=== PATIENT | female | born 1965 | race Caucasian/White ===

== ENCOUNTER 2017-01-28 14:35 | Emergency (ER) | payer OTHER ==
[2017-01-28 14:44] VITALS: BP 153/82; PULSE 90; TEMP 98.2; BMI 25.9
[2017-01-28] MEDS ORDERED: KETOROLAC TROMETHAMINE 60 MG/2 ML VIAL IM ONE (15:15)
[2017-01-28] MEDS ORDERED: KETOROLAC TROMETHAMINE 60 MG/2 ML VIAL ONE (15:17)
--- NOTE | 2017-01-28 15:43 | PDOC ---
History of Present Illness - General Chief Complaint: Head/Neck problem Stated Complaint: LT SHOULDER&NECK PAIN Time Seen by Provider: 01/28/17 14:45 History Source: Patient Exam Limitations: No Limitations - History of Present Illness Initial Comments: 01/28/17 15:39 51 yr female with pain for 4 days to left side neck radiating to back of shoulder and upper arm. Pt states she woke up with the pain 4 days go continues to have pain, worse with movement of her neck. no fever no headache no chills, no trauma. 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 01/28/17 15:40 01/29/17 13:53 Past History - Past Medical History Allergies/Adverse Reactions: Allergies Allergy/AdvReac Type Severity Reaction Status Date / Time No Known Drug Allergies Allergy Verified 01/28/17 14:40 Home Medications: Ambulatory Orders Metformin HCl [Glucophage] 1,000 mg PO BID 07/17/12 Diazepam [Valium] 2 mg PO TID #15 tablet MDD 10mg 01/28/17 Lantus (10mL VIAL) - 01/28/17 Naproxen [Naprosyn -] 500 mg PO BID PRN #28 tablet 01/28/17 Tamoxifen Citrate 01/28/17 Anemia: Yes Asthma: No Cancer: Yes (BREAST) Cardiac Disorders: No CVA: No COPD: No CHF: No Dementia: No Diabetes: Yes GI Disorders: No Disorders: No HTN: Yes Hypercholesterolemia: No Liver Disease: No Seizures: No Thyroid Disease: No - Surgical History Abdominal Surgery: No Appendectomy: No Cardiac Surgery: No Cholecystectomy: No Lung Surgery: No Neurologic Surgery: No Orthopedic Surgery: No - Psycho/Social/Smoking Cessation Hx Anxiety: No Suicidal Ideation: No Smoking History: Never smoked Have you smoked in the past 12 months: No Hx Alcohol Use: No Drug/Substance Use Hx: No Substance Use Type: None Hx Substance Use Treatment: No *Physical Exam - Vital Signs Last Vital Signs Temp Pulse Resp BP Pulse Ox 98.2 F 90 19 153/82 99 01/28/17 14:40 01/28/17 14:40 01/28/17 14:40 01/28/17 14:40 01/28/17 14:40 - Physical Exam General Appearance: Yes: Nourished, Appropriately Dressed HEENT: positive: EOMI, DELORES, Normal ENT Inspection, TMs Normal, Pharynx Normal Neck: positive: Supple, Decreased range of motion, Tender lateral. negative: Rigidity, Tender midline Respiratory/Chest: positive: Lungs Clear, Normal Breath Sounds. negative: Chest Tender Cardiovascular: positive: Regular Rhythm, Regular Rate Gastrointestinal/Abdominal: positive: Normal Bowel Sounds, Soft. negative: Tender Musculoskeletal: positive: Normal Inspection, Muscle Spasm. negative: Vertebral Tenderness Extremity: positive: Normal Capillary Refill, Normal Inspection, Normal Range of Motion Integumentary: positive: Normal Color, Dry, Warm. negative: Pale Neurologic: positive: Fully Oriented, Alert, Normal Mood/Affect, Normal Response , Motor Strength 03/04 ED Treatment Course - RADIOLOGY Radiology Studies Ordered: Category Date Time Status SPINE-CERVICAL [RAD] Stat Radiology 01/28/17 15:11 Taken - Medications Given in the ED: ED Medications Discontinued Medications Generic Name Dose Route Start Last Admin Trade Name Freq PRN Reason Stop Dose Admin Ketorolac Tromethamine 60 mg 01/28/17 15:15 01/28/17 15:21 Toradol Injection - IM 01/28/17 15:16 60 mg ONCE ONE Administration Medical Decision Making - Medical Decision Making 01/28/17 15:42 cc: pain to left lateral neck to back of shoulder to upper arm worse with touch and movement no rash neg numbness or tingling will give toradol cspine xray 01/29/17 13:53 pt given copy of the xray report to discuss with her doctor or the orthopedist. pt satisfied with the plan of care and all questions asked and answered about the follow up plan. *DC/Admit/Observation/Transfer Diagnosis at time of Disposition: Cervical radiculopathy at C5 - Discharge Dispostion Disposition: HOME Condition at time of disposition: Good - Prescriptions Prescriptions: Naproxen [Naprosyn -] 500 mg PO BID PRN #28 tablet PRN Reason: Pain Diazepam [Valium] 2 mg PO TID #15 tablet MDD 10mg - Referrals Referrals: Sofia Nuñez MD [Primary Care Provider] - Gurvinder Baxter MD [Staff Physician] - - Patient Instructions Additional Instructions: take naprosyn as directed for pain take valium for muscle spasm you can take the two medications together DO NOT DRIVE, DRINK ALCOHOL OR OPERATE MACHINERY WHILE TAKING THIS MEDICATION ( VALIUM) apply ice every 2hrs for 15 minutes to the left side of your neck , alternate with heating pad you can use an over the counter rubbing cream such as Bio Freeze for sore muscles or Icy Hot please follow with the orthopedist for follow up and your primary care doctor return if any worsening symptoms
== END 2017-01-28 16:02 | disposition home or self-care (01) ==
LOC: JERFT 14:35
PROC: 3E0233Z Introduction of Anti-inflammatory into Muscle, Percutaneous Approach (ICD-10-PCS; principal; 2017-01-28)
DX: M54.12 Radiculopathy, cervical region (principal); I10 Essential (primary) hypertension; E11.9 Type 2 diabetes mellitus without complications; Z79.4 Long term (current) use of insulin; Z79.84 Long term (current) use of oral hypoglycemic drugs; Z85.3 Personal history of malignant neoplasm of breast
CPT/HCPCS: 72050-TC; 99281-25

== ENCOUNTER 2019-04-30 20:40 | Emergency (ER) | payer OTHER ==
[2019-04-30 20:49] VITALS: BMI 26.9
--- NOTE | 2019-04-30 20:50 | PDOC ---
Rapid Medical Evaluation Chief Complaint: Respiratory Time Seen by Provider: 04/30/19 20:44 Medical Evaluation: Allergies Allergy/AdvReac Type Severity Reaction Status Date / Time No Known Drug Allergies Allergy Verified 01/28/17 14:40 04/30/19 20:45 I have performed a brief in-person evaluation of this patient. The patient presents with a chief complaint of: fevers 103 - seen at Urgent Care with Influenza swab NEGATIVE there, Breast Cancer survivor. Pertinent physical exam findings: pale. , lungs clear. I have ordered the following: CxR, Ua The patient will proceed to the ED for further evaluation. 04/30/19 20:48 04/30/19 20:51 Discharge Disposition - Diagnosis Fever Qualifiers: Fever type: unspecified Qualified Code(s): R50.9 - Fever, unspecified - Referrals - Patient Instructions - Post Discharge Activity
--- NOTE | 2019-04-30 23:58 | PDOC ---
History of Present Illness - General Chief Complaint: Respiratory Stated Complaint: SENT BY DOCTOR Time Seen by Provider: 04/30/19 20:44 History Source: Patient Exam Limitations: No Limitations - History of Present Illness Initial Comments: 04/30/19 23:52 53 yo female pmh breast CA (s/p chemo and radiation, remission since 2017, sees Dr. Huitron regularly) and IDDM presents to the ED for 3 days of generalized weakness, dizziness, F/C and night sweats. Pt admits to recent travel to [place] , denies sick contacts or eating new/different foods. Denies N/V, CP, SOB, abdominal pain, back pain, changes in bowel or bladder habits, cough, congestion , KRAUSE, ear pain or sinus pain. Of note, Pt blood sugar at home in the 400s, averages 140s-160s, took sliding scale at home. Past History - Past Medical History Allergies/Adverse Reactions: Allergies Allergy/AdvReac Type Severity Reaction Status Date / Time No Known Drug Allergies Allergy Verified 04/30/19 20:49 Home Medications: Ambulatory Orders metFORMIN HCL [Glucophage] 1,000 mg PO DAILY 07/17/12 Tamoxifen Citrate 01/28/17 Insulin Lispro [Humalog] 100 unit SQ BID PRN 05/01/19 Sulfamethoxazole/Trimethoprim [Bactrim Ds Tablet] 1 each PO BID 3 Days #6 tablet 05/01/19 Anemia: Yes Asthma: No Cancer: Yes (BREAST) Cardiac Disorders: No CVA: No COPD: No CHF: No Dementia: No Diabetes: Yes GI Disorders: No Disorders: No HTN: Yes Hypercholesterolemia: No Liver Disease: No Seizures: No Thyroid Disease: No - Surgical History Abdominal Surgery: No Appendectomy: No Cardiac Surgery: No Cholecystectomy: No Lung Surgery: No Neurologic Surgery: No Orthopedic Surgery: No - Suicide/Smoking/Psychosocial Hx Smoking History: Never smoked Have you smoked in the past 12 months: No Hx Alcohol Use: No Drug/Substance Use Hx: No Substance Use Type: None Hx Substance Use Treatment: No Review of Systems - Review of Systems Constitutional: Yes: Chills, Fever, Night Sweats, Weakness (generalized), Weight Stable Respiratory: No: Cough, Shortness of Breath, Wheezing, Productive cough Cardiac (ROS): No: Chest Pain, Edema ABD/GI: No: Constipated, Diarrhea, Nausea, Vomiting : No: Burning, Dysuria, Discharge, Frequency, Flank Pain, Hematuria, Incontinence *Physical Exam - Vital Signs Last Vital Signs Temp Pulse Resp BP Pulse Ox 100.5 F H 120 H 18 104/71 95 04/30/19 20:44 04/30/19 20:44 04/30/19 20:44 04/30/19 20:44 04/30/19 20:44 - Physical Exam General Appearance: Yes: Nourished, Appropriately Dressed. No: Apparent Distress HEENT: positive: EOMI, Normal Voice Neck: positive: Supple. negative: Carotid bruit Respiratory/Chest: positive: Lungs Clear, Normal Breath Sounds. negative: Accessory Muscle Use, Crackles, Rales, Rhonchi, Wheezing Cardiovascular: positive: Regular Rhythm, Regular Rate, S1, S2. negative: Edema , JVD, Murmur Vascular Pulses: Dorsalis-Pedis (R): 4+, Doralis-Pedis (L): 4+ Gastrointestinal/Abdominal: positive: Flat, Soft. negative: Pulsatile Mass, Distended, Guarding, Rebound, Tenderness Musculoskeletal: negative: CVA Tenderness Extremity: positive: Normal Capillary Refill, Normal Inspection, Normal Range of Motion Integumentary: positive: Normal Color, Dry, Warm Neurologic: positive: Fully Oriented, Alert, Normal Mood/Affect, Normal Response ED Treatment Course - LABORATORY CBC & Chemistry Diagram: 05/01/19 00:50 05/01/19 00:50 Medical Decision Making - Medical Decision Making 05/01/19 01:42 53 yo female pmh IDDM and breast CA (in remission) presents to ED with 3 datys of generalized weakness, dizziness and fevers. Elevated BS at home Denies infectious s/s Vitals show elevated HR and temp Pt ambulates without difficulty, AOX4, NAD DDX INLT: DKA (blood sugar 240s, no anion gap, bicarb normal) infection, UTI, URI UA shows signs of significant infection, will treat with IV ceftriaxone Labs normal, no elevated WBC Denies CVA tenderness Pt is reliable, has follow up with PCP tita, will take PO meds and have strict return precautions for worsening infection *DC/Admit/Observation/Transfer Diagnosis at time of Disposition: UTI (urinary tract infection) Fever Qualifiers: Fever type: due to other condition Qualified Code(s): R50.81 - Fever presenting with conditions classified elsewhere - Discharge Dispostion Disposition: HOME Condition at time of disposition: Stable - Prescriptions Prescriptions: Sulfamethoxazole/Trimethoprim [Bactrim Ds Tablet] 1 each PO BID 3 Days #6 tablet - Referrals Referrals: Sofia Nuñez MD [Primary Care Provider] - - Patient Instructions Additional Instructions: Please see your primary doctor within the next 48 hours. Take over the counter tyelnol or motrin every 4-6 hours as needed for elevated temperatures. Take the antibiotics sent to your pharmacy as prescribed for the next 3 days. Return to the ER for new or concerning symptoms including but not limited to: inability to eat or drink, significant back pain, persistently elevated temperature, confusion, vomiting. Thank you - Post Discharge Activity
[2019-05-01] MEDS ORDERED: SODIUM CHLORIDE 1,000 ML IV STA (00:12)
[2019-05-01 00:27] LABS: EPI CELLS 4.6 /HPF (0-5/HPF); HYALINE CASTS 11 /lpf (0-8); URINE APPEARANCE TURBID; URINE BACTERIA >9000 /hpf (NEGATIVE); URINE BILIRUBIN 2+ (NEGATIVE); URINE COLOR DK YELLOW; URINE GLUCOSE (UA) 3+ (NEGATIVE); URINE KETONE 2+ (NEGATIVE); URINE LEUK ESTERASE 2+ (NEGATIVE); URINE NITRITE POSITIVE (NEGATIVE); URINE PROTEIN 3+ (NEGATIVE); URINE RBC 9 /hpf (0-4); URINE WBC 469 /hpf (0-5)
[2019-05-01] MEDS ORDERED: ACETAMINOPHEN 1000 MG/100 ML VIAL (NON FORMULARY) IVPB ONE (00:28)
[2019-05-01] MEDS ORDERED: CEFTRIAXONE 1,000 MG in DEXTROSE 5%-WATER - 50 ML IVPB ONE (00:35)
--- NOTE | 2019-05-01 00:37 | PDOC ---
Documentation entered by Pietro Mcnair SCRIBE, acting as scribe for Robyn Hilliard MD. Robyn Hilliard MD: This documentation has been prepared by the Xu trujillo Daniel, SCRIBE, under my direction and personally reviewed by me in its entirety. I confirm that the documentation accurately reflects all work, treatment, procedures, and medical decision making performed by me. Attending Attestation - Resident Resident Name: Javier Vazquez - ED Attending Attestation I have performed the following: I have examined & evaluated the patient, The case was reviewed & discussed with the resident, I agree w/resident's findings & plan, Exceptions are as noted - HPI HPI: 05/01/19 00:02 The patient is a 53 year old female with a past medical history of breast cancer (s/p chemo and radiation, in remission since 2017) and insulin dependent diabetes here today for evaluation of fever. The patient reports that she has had 2 days of sweats and dizziness. She notes taking her fever at home and it being 103. She went to an urgent care facility and was told to come to the ER. She reports traveling to [place] in the past week. Patient denies headache. Denies chest pain, shortness of breath. Denies nausea, vomiting, diarrhea, abdominal pain. Denies sick contacts. Allergies: NKDA PCP: Sofia Nuñez Oncologist: Joshua Huitron - Physicial Exam PE: 05/01/19 00:26 GENERAL: Well developed, well nourished. Awake and alert. No acute distress. HEENT: Normocephalic, atraumatic. PERRLA, EOMI. No conjunctival pallor. Sclera are non- icteric. Moist mucous membranes. Oropharynx is clear. NECK: Supple. Full ROM. No JVD. Carotid pulses 2+ and symmetric, without bruits. No thyromegaly. No lymphadenopathy. CARDIOVASCULAR: +tachycardia. Regular rhythm. No murmurs, rubs, or gallops. Distal pulses are 2 + and symmetric. PULMONARY: No evidence of respiratory distress. Lungs clear to auscultation bilaterally. No wheezing, rales or rhonchi. ABDOMINAL: Soft. Non-tender. Non-distended. No rebound or guarding. No organomegaly. Normoactive bowel sounds. MUSCULOSKELETAL Normal range of motion at all joints. No bony deformities or tenderness. No CVA tenderness. EXTREMITIES: No cyanosis. No clubbing. No edema. No calf tenderness. SKIN: Very warm and dry. Normal capillary refill. No rashes. No jaundice. NEUROLOGICAL: Alert, awake, appropriate. Cranial nerves 2-12 intact. No deficits to light touch and temperature in face, upper extremities and lower extremities. No motor deficits in the face, upper extremities and lower extremities. Normoreflexic in the upper and lower extremities. Normal speech. Toes are down- going bilaterally. Gait is normal without ataxia. PSYCHIATRIC: Cooperative. Good eye contact. Appropriate mood and affect. - Medical Decision Making 05/01/19 00:35 Repeat [id number] Labs reviewed and she has a UTI with + nitrite,wbcs >300 pt to receive IVF,IV rocephin 05/01/19 01:53 pt is not vomiting and will be able to take po antibiotics RX bactrim IMP uti/diabetes plan ABX, followup w Dr Nuñez
[2019-05-01] MEDS ORDERED: ACETAMINOPHEN INJECTION 100 ML IVPB ONE (00:45)
[2019-05-01] MEDS ORDERED: CEFTRIAXONE 1 GM/50 ML BAG ONE (00:45)
[2019-05-01 01:11] LABS: BASO % 0.3 % (0-2.0); HEMATOCRIT 40.2 % (32.4-45.2); HEMOGLOBIN 13.4 GM/dL (10.7-15.3); LYMPH % 14.9 % (8-40); MCH 27.2 pg (25.7-33.7); MCHC 33.3 g/dl (32.0-36.0); MEAN CELL VOLUME 81.8 fl (80-96); MONO % 11.7 % (3.8-10.2); NEUT % 73.1 % (42.8-82.8); PLATELET COUNT 122 K/MM3 (134-434); RBC 4.91 M/mm3 (3.60-5.2); RDW 13.4 % (11.6-15.6); WHITE BLOOD COUNT 6.5 K/mm3 (4.0-10.0)
[2019-05-01 01:33] LABS: ALBUMIN 3.5 g/dl (3.4-5.0); BILIRUBIN,TOTAL 1.7 mg/dL (0.2-1); BLOOD UREA NITROGEN 16.4 mg/dL (7-18); CALCIUM 9.2 mg/dL (8.5-10.1); POTASSIUM 4.1 mmol/L (3.5-5.1); TOT PROT 7.9 g/dl (6.4-8.2)
[2019-05-01 02:30] VITALS: BP 145/79; PULSE 99; TEMP 99.4
--- NOTE | 2019-05-01 14:45 | PDOC ---
Patient Follow-up (Call Back) - Post ED Follow - Up Condition at time of discharge: Stable Disposition at time of original discharge: HOME Reason for Call Back: Abnwl. Microbiology ((+) blood culture, gram - bacilli in one anerobic bottle. LM for patient to call back for repeat blood draws/re- evaluation)
== END 2019-05-01 04:55 | disposition home or self-care (01) ==
LOC: JER 20:40
PROC: 3E0337Z Introduction of Electrolytic and Water Balance Substance into Peripheral Vein, Percutaneous Approach (ICD-10-PCS; principal; 2019-04-30)
PROC: 3E03329 Introduction of Other Anti-infective into Peripheral Vein, Percutaneous Approach (ICD-10-PCS; 2019-04-30)
PROC: 3E033NZ Introduction of Analgesics, Hypnotics, Sedatives into Peripheral Vein, Percutaneous Approach (ICD-10-PCS; 2019-04-30)
DX: N39.0 Urinary tract infection, site not specified (principal); E11.9 Type 2 diabetes mellitus without complications; Z79.4 Long term (current) use of insulin; I10 Essential (primary) hypertension; Z85.3 Personal history of malignant neoplasm of breast
CPT/HCPCS: 36415; 71046-TC-FY; 80053; 81003; 83605; 85025; 87040; 87070; 87077; 87086; 87186; 87880; 99283-25; J0131; J7030

== ENCOUNTER 2019-05-01 17:13 | Inpatient (IN) | payer OTHER ==
--- NOTE | 2019-05-01 17:21 | PDOC ---
Rapid Medical Evaluation Time Seen by Provider: 05/01/19 17:15 Medical Evaluation: Allergies Allergy/AdvReac Type Severity Reaction Status Date / Time No Known Drug Allergies Allergy Verified 04/30/19 20:49 05/01/19 17:15 The patient is a 53 y/o F who presents to the ER for repeat labs after having a positive blood culture yesterday (1 bottle gram negative, anerobic bottle.) Pt was diagnosed with a UTI last night and was given one dose of ceftriaxone last night. Admits to fatigue at this time. No Motrin or Tylenol this am Exam: febrile 101F. NAD, Lungs CTAB Orders: Sepsis order set Pt to proceed to the ER for further evaluation Discharge Disposition - Diagnosis Positive blood culture - Referrals - Patient Instructions - Post Discharge Activity
[2019-05-01] MEDS ORDERED: ACETAMINOPHEN 1000 MG/100 ML VIAL (NON FORMULARY) IVPB ONE (17:23)
[2019-05-01] MEDS ORDERED: SODIUM CHLORIDE 1,000 ML IV STA ×2 (17:23→20:33)
--- NOTE | 2019-05-01 18:43 | PDOC ---
History of Present Illness - General Chief Complaint: Revisit, Lab Variance Stated Complaint: FOLLOW UP/ BLOOD WORK Time Seen by Provider: 05/01/19 17:15 History Source: Patient Exam Limitations: No Limitations - History of Present Illness Initial Comments: 05/01/19 18:43 53yo F with PMH of breast CA (remission since 2016), IDDM presenting to ED for a blood culture that grew gram negative bacilli. She denies any symptoms at this time, although does endorse feeling tired. Denies n/v/d, fever/chills, flank pain, cough, congestion, sob, sore throat, abdominal pain, urinary symptoms, sick contacts, rashes, headache. She was diagnosed with a UTI yesterday and given ceftriaxone. PMD: [place] PMH: see hpi PSH: Meds: see med rec Allergies: nkda Past History - Past Medical History Allergies/Adverse Reactions: Allergies Allergy/AdvReac Type Severity Reaction Status Date / Time No Known Drug Allergies Allergy Verified 04/30/19 20:49 Home Medications: Ambulatory Orders metFORMIN HCL [Glucophage] 1,000 mg PO BID 07/17/12 Diazepam [Valium] 2 mg PO TID #15 tablet MDD 10mg 01/28/17 Lantus (10mL VIAL) - 01/28/17 Naproxen [Naprosyn -] 500 mg PO BID PRN #28 tablet 01/28/17 Tamoxifen Citrate 01/28/17 Sulfamethoxazole/Trimethoprim [Bactrim Ds Tablet] 1 each PO BID 3 Days #6 tablet 05/01/19 Anemia: Yes Asthma: No Cancer: Yes (BREAST) Cardiac Disorders: No CVA: No COPD: No CHF: No Dementia: No Diabetes: Yes GI Disorders: No Disorders: No HTN: Yes Hypercholesterolemia: No Liver Disease: No Seizures: No Thyroid Disease: No - Surgical History Abdominal Surgery: No Appendectomy: No Cardiac Surgery: No Cholecystectomy: No Lung Surgery: No Neurologic Surgery: No Orthopedic Surgery: No - Immunization History Immunization Up to Date: No - Suicide/Smoking/Psychosocial Hx Smoking History: Never smoked Have you smoked in the past 12 months: No Information on smoking cessation initiated: No Hx Alcohol Use: No Drug/Substance Use Hx: No Substance Use Type: None Hx Substance Use Treatment: No Review of Systems - Review of Systems Constitutional: Yes: Weakness. No: Chills, Fever HEENTM: No: Symptoms Reported Respiratory: No: Symptoms reported Cardiac (ROS): No: Symptoms Reported ABD/GI: No: Symptoms Reported : No: Symptoms Reported Musculoskeletal: No: Symptoms Reported Integumentary: No: Symptoms Reported Neurological: No: Symptoms reported *Physical Exam - Vital Signs Last Vital Signs Temp Pulse Resp BP Pulse Ox 101.8 F H 117 H 16 115/72 100 05/01/19 17:17 05/01/19 17:17 05/01/19 17:17 05/01/19 17:17 05/01/19 17:17 - Physical Exam General Appearance: Yes: Nourished, Appropriately Dressed. No: Apparent Distress HEENT: positive: EOMI, DELORES Neck: positive: Trachea midline, Supple Respiratory/Chest: positive: Lungs Clear, Normal Breath Sounds. negative: Crackles, Rhonchi Cardiovascular: positive: S1, S2, Tachycardia. negative: Murmur Vascular Pulses: Dorsalis-Pedis (R): 2+, Doralis-Pedis (L): 2+ Gastrointestinal/Abdominal: positive: Normal Bowel Sounds, Soft. negative: Tender Musculoskeletal: negative: CVA Tenderness Extremity: positive: Normal Capillary Refill. negative: Pedal Edema Integumentary: positive: Normal Color, Dry, Warm Neurologic: positive: oyster planter II-XII NML intact, Fully Oriented, Alert, Normal Mood/ Affect, Normal Response, Motor Strength 5/5 Medical Decision Making - Medical Decision Making 05/01/19 18:54 53yo F with PMH of breast CA (remission since 2017), IDDM presenting to ED for a blood culture that grew gram negative bacilli. She denies any symptoms at this time, although does endorse fever and feeling tired. Denies n/v/d, flank pain, cough, congestion, sob, sore throat, abdominal pain, sick contacts, rashes , headache. She was diagnosed with a UTI yesterday and given ceftriaxone. Vitals: febrile, tachycardia, normotensive PE: benign ddx includes but not limited to urosepsis, pyelonephritis, electrolyte/ metabolic disturbance, malignancy pt not on immunosuppressant drugs. Received ceftriaxone yesterday? Bactrim prescribed yesterday but she was not able to take it. labs/sepsis w/u ordered by [facility]. Will likely need admission. Signed out to night resident *DC/Admit/Observation/Transfer Diagnosis at time of Disposition: Positive blood culture Fever Qualifiers: Fever type: due to other condition Qualified Code(s): R50.81 - Fever presenting with conditions classified elsewhere - Discharge Dispostion Condition at time of disposition: Stable - Referrals Referrals: Sofia Nuñez MD [Primary Care Provider] - - Patient Instructions - Post Discharge Activity
[2019-05-01] MEDS ORDERED: ACETAMINOPHEN INJECTION 100 ML IVPB ONE (18:49)
[2019-05-01 18:54] LABS: BASO % 0.3 % (0-2.0); EOS % 0.2 % (0-4.5); HEMATOCRIT 33.3 % (32.4-45.2); HEMOGLOBIN 11.2 GM/dL (10.7-15.3); LYMPH % 16.4 % (8-40); MCH 27.1 pg (25.7-33.7); MCHC 33.6 g/dl (32.0-36.0); MEAN CELL VOLUME 80.5 fl (80-96); MEAN PLT VOLUME 8.2 fl (7.5-11.1); NEUT % 72.1 % (42.8-82.8); PLATELET COUNT 126 K/MM3 (134-434); RBC 4.13 M/mm3 (3.60-5.2); RDW 13.6 % (11.6-15.6); WHITE BLOOD COUNT 5.7 K/mm3 (4.0-10.0)
[2019-05-01 19:03] LABS: INR 1.15 (0.83-1.09); PROTHROMBIN TIME (PATIENT) 13.6 SEC (9.7-13.0)
[2019-05-01] MEDS ORDERED: VANCOMYCIN 1 GM in D5W (PRE-DOCKED) 1,000 MG/250 ML IVPB ONE (19:11)
[2019-05-01] MEDS ORDERED: PIPERACILLIN/TAZOB 3.375 GM 3.375 GM in DEXTROSE 5%-WATER - 50 ML IVPB ONE (19:11)
[2019-05-01 19:30] LABS: BILIRUBIN,TOTAL 0.8 mg/dL (0.2-1); BLOOD UREA NITROGEN 14.7 mg/dL (7-18); CALCIUM 8.8 mg/dL (8.5-10.1); CREATININE 0.9 mg/dL (0.55-1.3); POTASSIUM 3.7 mmol/L (3.5-5.1); TOT PROT 6.9 g/dl (6.4-8.2)
[2019-05-01] MEDS ORDERED: PIPERACILLIN/TAZOB 3.375 GM 3.375 GM/50 ML BAG IVPB ONE (20:18)
[2019-05-01] MEDS ORDERED: VANCOMYCIN 1 GRAM (PRE-DOCKED) 1,000 MG/250 ML BAG IVPB ONE (20:18)
--- NOTE | 2019-05-01 20:42 | PDOC ---
*Physical Exam - Vital Signs Last Vital Signs Temp Pulse Resp BP Pulse Ox 101.8 F H 117 H 16 115/72 100 05/01/19 17:17 05/01/19 17:17 05/01/19 17:17 05/01/19 17:17 05/01/19 17:17 ED Treatment Course - LABORATORY CBC & Chemistry Diagram: 05/03/19 06:17 05/03/19 06:17 - ADDITIONAL ORDERS Additional order review: Laboratory Results 05/01/19 05/01/19 05/01/19 18:37 17:22 17:22 PT with INR 13.60 H INR 1.15 H Sodium 135 L Potassium 3.7 Chloride 102 Carbon Dioxide 28 Anion Gap 5 L BUN 14.7 Creatinine 0.9 Est GFR (CKD-EPI)AfAm 84.01 Est GFR (CKD-EPI)NonAf 72.49 Random Glucose 193 H Lactic Acid 1.1 Calcium 8.8 Total Bilirubin 0.8 AST 16 ALT 41 Alkaline Phosphatase 104 Total Protein 6.9 Albumin 3.0 L 05/01/19 18:37 RBC 4.13 MCV 80.5 MCHC 33.6 RDW 13.6 MPV 8.2 Neutrophils % 72.1 Lymphocytes % 16.4 Monocytes % 11.0 H Eosinophils % 0.2 D Basophils % 0.3 - Medications Given in the ED: ED Medications Discontinued Medications Generic Name Dose Route Start Last Admin Trade Name Freq PRN Reason Stop Dose Admin Acetaminophen 1,000 mg 05/01/19 17:23 05/01/19 18:55 Ofirmev Injection - IVPB 05/01/19 17:24 1,000 mg ONCE ONE Administration Sodium Chloride 1,000 mls @ 1,000 mls/hr 05/01/19 17:23 05/01/19 18:54 Normal Saline - IV 05/01/19 18:22 1,000 mls/hr ASDIR STA Administration Medical Decision Making - Medical Decision Making 05/01/19 20:34 S/O from day team for likely admission for Uro sepsis falling antibiotics. Received Ceftriaxone pt admitted to med surg 2L NS, [place] Pending CBC and UA CBC neg for elevated WBC UA shows 1+ leukocytes Discussed case with Dr. Vaughan, agrees to have pt admitted to med surg under Dr. Nuñez for uro sepsis Pt understands and agrees with plan to admit *DC/Admit/Observation/Transfer Diagnosis at time of Disposition: Positive blood culture, UTI (urinary tract infection) Fever Qualifiers: Fever type: due to other condition Qualified Code(s): R50.81 - Fever presenting with conditions classified elsewhere - Discharge Dispostion Condition at time of disposition: Stable Decision to Admit order: Yes - Referrals - Patient Instructions - Post Discharge Activity
--- NOTE | 2019-05-01 21:06 | PDOC ---
Documentation entered by Garret Mccollum SCRIBE, acting as scribe for Robyn Hilliard MD. Robyn Hilliard MD: This documentation has been prepared by the Chun trujillo Elijah, SCRIBE, under my direction and personally reviewed by me in its entirety. I confirm that the documentation accurately reflects all work, treatment, procedures, and medical decision making performed by me. Attending Attestation - Resident Resident Name: ShavonneOksana - ED Attending Attestation I have performed the following: I have examined & evaluated the patient, The case was reviewed & discussed with the resident, I agree w/resident's findings & plan - HPI HPI: 05/01/19 20:20 Patient is a 53 year old female who presents to the ED with of breast CA ( remission since 2017), IDDM, anemia, and HTN who presents to the ED for a follow -up of a blood culture that came back gram-negative bacilli. The patient was recently seen in the ED x1 day prior where she was diagnosed with a UTI. Patient was given antibiotics, but upon returning home, fell asleep without taking her medication and still awoke with fever. Denies: Nausea, Vomiting, Diarrhea, CP, and SOB Allergies: NKDA PCP: Dr. Nuñez - Physicial Exam PE: 05/01/19 20:20 GENERAL: Awake, alert, and fully oriented, in no acute distress HEAD: No signs of trauma EYES: PERRLA, EOMI, sclera anicteric, conjunctiva clear ENT: Auricles normal inspection, hearing grossly normal, nares patent, oropharynx clear without exudates. Moist mucosa NECK: Normal ROM, supple, no lymphadenopathy, JVD, or masses LUNGS: Breath sounds equal, clear to auscultation bilaterally. No wheezes, and no crackles HEART: +Tachycardic Normal S1 and S2, no murmurs, rubs or gallops ABDOMEN: Soft, nontender, normoactive bowel sounds. No guarding, no rebound. No masses EXTREMITIES: Normal range of motion, no edema. No clubbing or cyanosis. No cords, erythema, or tenderness NEUROLOGICAL: Cranial nerves II through XII grossly intact. Normal speech, normal gait SKIN: Warm, Dry, normal turgor, no rashes or lesions noted. - Medical Decision Making 05/01/19 20:58 53 yo female who was diagnosaed w UTI yesterday but did not get to fill her prescription p/w fever and needs admission for urosepsis and IV antibiotics
--- NOTE | 2019-05-01 21:17 | HP ---
CHIEF COMPLAINT: follow up for blood culture ( gram- negative bacilli) PCP:Dr. Nuñez HISTORY OF PRESENT ILLNESS: 53 year old female with PMHx of breast cancer (in remission), DM type I, Anemia, and Hypertension. Presented to ER yesterday 2018 due to fever of 103, work up was done positive urinalysis diagnosed with UTI given Ceftriaxone x1in ED then discharged with PO antibiotics. Today 05/01 presents to ER for blood culture ( gram - negative bacilli) and fever of 101. During the course of ED given x1 dose Zosyn and Vancomycin, repeat blood culture. Tylenol given temp rechecked 99 F now. Upon exam patient reports feeling tired, and poor appetite, otherwise denies n/v/d, fever/chills, flank pain, cough, congestion, sob, sore throat, abdominal pain, urinary symptoms, rashes, headache. ER course was notable for: (1) noted with temp 101, given zosyn and vanco x1 (2) yesterday blood culture shows gram- negative bacilli (3) follow up repeat blood and urine culture Recent Travel: no PAST MEDICAL HISTORY: Anemia, Breast ca ( in remission), DM type 1, HTN PAST SURGICAL HISTORY: NO Social History: Smoking:no Alcohol: yes social Drugs: no Family History: Father and Mother both have history of DM type I Allergies: no No Known Drug Allergies Allergy (Verified 04/30/19 20:49) HOME MEDICATIONS: Home Medications Medication Instructions Recorded metFORMIN HCL [Glucophage] 1,000 mg PO DAILY 07/17/12 Tamoxifen Citrate 01/28/17 Insulin Lispro [Humalog] 100 unit SQ BID PRN 05/01/19 Sulfamethoxazole/Trimethoprim 1 each PO BID 3 Days #6 tablet 05/01/19 [Bactrim Ds Tablet] REVIEW OF SYSTEMS CONSTITUTIONAL: malaise, loss of appetite HEENT: Absent: rhinorrhea, nasal congestion, mouth swelling, ear pain, eye pain, visual changes CARDIOVASCULAR: Absent: chest pain, syncope, palpitations, irregular heart rate , lightheadedness, peripheral edema RESPIRATORY: Absent: cough, shortness of breath, dyspnea with exertion, orthopnea, wheezing GASTROINTESTINAL: Absent: abdominal pain, abdominal distension, nausea, vomiting , diarrhea, constipation GENITOURINARY: Absent: dysuria, frequency, urgency, hesitancy, hematuria, flank pain, genital pain MUSCULOSKELETAL: Absent: myalgia, arthralgia, joint swelling, back pain, neck pain SKIN: Absent: rash, itching, pallor HEMATOLOGIC/IMMUNOLOGIC: Absent: easy bleeding, easy bruising, lymphadenopathy , frequent infections ENDOCRINE: Absent: unexplained weight gain, unexplained weight loss, heat intolerance, cold intolerance NEUROLOGIC: Absent: headache, focal weakness or paresthesias, dizziness, unsteady gait, seizure, mental status changes, bladder or bowel incontinence PSYCHIATRIC: Absent: anxiety, depression, suicidal or homicidal ideation, hallucinations. PHYSICAL EXAMINATION Vital Signs - 24 hr 05/01/19 17:17 Temperature 101.8 F H Pulse Rate 117 H Respiratory 16 Rate Blood Pressure 115/72 O2 Sat by Pulse 100 Oximetry (%) GENERAL: Awake, alert, and fully oriented, in no acute distress. HEENT: NC/AT, EOMI, PERRLA NECK: Normal range of motion, supple without lymphadenopathy, JVD, or masses. LUNGS: Breath sounds equal, clear to auscultation bilaterally. No wheezes HEART: Regular rate and rhythm, normal S1 and S2 without murmur ABDOMEN: Soft, nontender, not distended, normoactive bowel sounds, no guarding, no rebound, no masses. MUSCULOSKELETAL: Normal range of motion at all joints. No bony deformities or tenderness. No CVA tenderness. NEUROLOGICAL: Cranial nerves II-XII intact. Normal speech. Normal gait. PSYCHIATRIC: Cooperative. Good eye contact. Appropriate mood and affect. SKIN: Warm, dry, normal turgor, no rashes or lesions noted Laboratory Results - last 24 hr 05/01/19 05/01/19 05/01/19 17:22 17:22 18:37 WBC 5.7 RBC 4.13 Hgb 11.2 Hct 33.3 D MCV 80.5 MCH 27.1 MCHC 33.6 RDW 13.6 Plt Count 126 L MPV 8.2 Absolute Neuts (auto) 4.1 Neutrophils % 72.1 Lymphocytes % 16.4 Monocytes % 11.0 H Eosinophils % 0.2 D Basophils % 0.3 Nucleated RBC % 0 PT with INR INR Sodium 135 L Potassium 3.7 Chloride 102 Carbon Dioxide 28 Anion Gap 5 L BUN 14.7 Creatinine 0.9 Est GFR (CKD-EPI)AfAm 84.01 Est GFR (CKD-EPI)NonAf 72.49 Random Glucose 193 H Lactic Acid 1.1 Calcium 8.8 Total Bilirubin 0.8 AST 16 ALT 41 Alkaline Phosphatase 104 Total Protein 6.9 Albumin 3.0 L 05/01/19 18:37 WBC RBC Hgb Hct MCV MCH MCHC RDW Plt Count MPV Absolute Neuts (auto) Neutrophils % Lymphocytes % Monocytes % Eosinophils % Basophils % Nucleated RBC % PT with INR 13.60 H INR 1.15 H Sodium Potassium Chloride Carbon Dioxide Anion Gap BUN Creatinine Est GFR (CKD-EPI)AfAm Est GFR (CKD-EPI)NonAf Random Glucose Lactic Acid Calcium Total Bilirubin AST ALT Alkaline Phosphatase Total Protein Albumin ASSESSMENT/PLAN: 53 year old female with PMHx breast CA (remission since 2016), IDDM, Anemia, HTN presenting to ED for a blood culture that grew gram negative bacilli. She was diagnosed with a UTI yesterday and given ceftriaxone x1 in ED and po antiboitics for home. Upon arriving to ED today noted with temp of 101 and tachy will admited to general medicine for sepsis secondary UTI Spesis ?UTI positive blood culture - in ED given Vanco and Zosyn x1 - Tyelnol PRN q 6 - follow up repeat blood, urine culture DM -continue with Metformin -Continue with Lantus and victoza ( sliding scale) h/o breast cancer - remission post tamoxifen 12/2016 Problem List - Problem (1) Sepsis Assessment/Plan: Spesis ?UTI positive blood culture - in ED given Vanco and Zosyn x1 - Tyelnol PRN q 6 - follow up repeat blood, urine culture Code(s): A41.9 - SEPSIS, UNSPECIFIED ORGANISM (2) UTI (urinary tract infection) Assessment/Plan: Spesis ?UTI positive blood culture - in ED given Vanco and Zosyn x1 - Tyelnol PRN q 6 - follow up repeat blood, urine culture Code(s): N39.0 - URINARY TRACT INFECTION, SITE NOT SPECIFIED (3) Diabetes Assessment/Plan: DM -continue with Metformin -Continue with Lantus and victoza ( sliding scale) Code(s): E11.9 - TYPE 2 DIABETES MELLITUS WITHOUT COMPLICATIONS (4) History of breast cancer Assessment/Plan: h/o breast cancer - remission post tamoxifen 12/2016 Code(s): Z85.3 - PERSONAL HISTORY OF MALIGNANT NEOPLASM OF BREAST Visit type - Emergency Visit Emergency Visit: Yes Care time: The patient presented to the Emergency Department on the above date and was hospitalized for further evaluation of their emergent condition. - New Patient This patient is new to me today: Yes Date on this admission: 05/01/19 - Critical Care Critical Care patient: No
[2019-05-01 21:48] LABS: EPI CELLS 6.2 /HPF (0-5/HPF); HYALINE CASTS 17 /lpf (0-8); URINE APPEARANCE CLEAR; URINE BILIRUBIN NEGATIVE (NEGATIVE); URINE COLOR DK YELLOW; URINE GLUCOSE (UA) 2+ (NEGATIVE); URINE KETONE TRACE (NEGATIVE); URINE LEUK ESTERASE 1+ (NEGATIVE); URINE NITRITE NEGATIVE (NEGATIVE); URINE PROTEIN 2+ (NEGATIVE); URINE RBC 18 /hpf (0-4); URINE WBC 28 /hpf (0-5)
[2019-05-01] MEDS ORDERED: ACETAMINOPHEN 325 MG TABLET (FP) ONE (22:11)
[2019-05-01] MEDS ORDERED: INSULIN (LEVEMIR) 100 UNITS/ML UNITS SQ ONE ×2 (22:12→22:43)
[2019-05-01] MEDS: INSULIN (LEVEMIR) 100 UNITS/ML UNITS SQ SCH (23:15)
[2019-05-02 01:25] VITALS: BMI 28.5
[2019-05-02] MEDS: ACETAMINOPHEN 325 MG TABLET (FP) PO PRN (05:57)
[2019-05-02] MEDS: INSULIN (NOVOLOG) ASPART 100 UNITS/ML 10ML VIAL SQ SCH ×3 (06:27→17:42)
[2019-05-02 07:37] LABS: HEMATOCRIT 28.6 % (32.4-45.2); HEMOGLOBIN 9.8 GM/dL (10.7-15.3); MCH 27.5 pg (25.7-33.7); MCHC 34.2 g/dl (32.0-36.0); MEAN CELL VOLUME 80.4 fl (80-96); RBC 3.56 M/mm3 (3.60-5.2); RDW 13.5 % (11.6-15.6); WHITE BLOOD COUNT 4.4 K/mm3 (4.0-10.0)
[2019-05-02 07:55] LABS: ALBUMIN 2.6 g/dl (3.4-5.0); BILIRUBIN,TOTAL 0.7 mg/dL (0.2-1); BLOOD UREA NITROGEN 9.2 mg/dL (7-18); CREATININE 0.6 mg/dL (0.55-1.3); POTASSIUM 3.3 mmol/L (3.5-5.1)
[2019-05-02 07:59] LABS: PLATELET COUNT 92 K/MM3 (134-434)
[2019-05-02] MEDS ORDERED: POTASSIUM CHLORIDE TABS 20 MEQ TABLET.ER (FP) PO ONE (08:54)
--- NOTE | 2019-05-02 08:56 | PN ---
Progress Note, Physician - Current Medication List Current Medications: Active Medications Acetaminophen (Tylenol -) 650 mg PO Q4H PRN PRN Reason: FEVER Last Admin: 05/02/19 05:57 Dose: 650 mg Insulin Aspart (Novolog Vial) 0 units SQ TIDAC REPLACED BY [facility]; Protocol Last Admin: 05/02/19 06:27 Dose: Not Given Insulin Detemir (Levemir Vial) 25 units SQ HS REPLACED BY [facility] Last Admin: 05/01/19 23:15 Dose: 25 unit Metformin HCl (Glucophage -) 1,000 mg PO DAILY REPLACED BY [facility] - Objective Vital Signs: Vital Signs Temperature 99.6 F 05/02/19 08:28 Pulse Rate 90 05/02/19 08:28 Respiratory Rate 19 05/02/19 08:28 Blood Pressure 140/73 05/02/19 08:28 O2 Sat by Pulse Oximetry (%) 100 05/02/19 01:37 Labs: CBC, BMP 05/02/19 06:40 05/02/19 06:40 INR, PTT INR 1.15 (0.83-1.09) H 05/01/19 18:37 Problem List - Problems (1) Sepsis Assessment/Plan: -IV ABX PER ID -FOLLOW LABS Microbiology 05/01/19 01:15 Blood - Peripheral Venous Blood Culture - Preliminary Lactose Fermenting Neg Bacilli 05/01/19 00:50 Throat Throat Culture - Preliminary Pending Organism 05/01/19 00:50 Blood - Peripheral Venous Blood Culture - Preliminary NO GROWTH OBTAINED AFTER 24 HOURS, INCUBATION TO CONTINUE FOR 4 DAYS. 05/01/19 00:05 Urine - Urine Clean Catch Urine Culture - Preliminary Lactose Fermenting Neg Bacilli IVF LACTIC ACID Code(s): A41.9 - SEPSIS, UNSPECIFIED ORGANISM (2) Thrombocytopenia Assessment/Plan: -DUE TO SEPSIS -FOLLOW LABS Code(s): D69.6 - THROMBOCYTOPENIA, UNSPECIFIED (3) Anemia Assessment/Plan: DUE TO HYRATION MONITOR Code(s): D64.9 - ANEMIA, UNSPECIFIED (4) Fever Code(s): R50.9 - FEVER, UNSPECIFIED Qualifiers: Fever type: due to other condition Qualified Code(s): R50.81 - Fever presenting with conditions classified elsewhere (5) History of breast cancer Code(s): Z85.3 - PERSONAL HISTORY OF MALIGNANT NEOPLASM OF BREAST (6) Positive blood culture Code(s): R78.81 - BACTEREMIA (7) Hypokalemia Assessment/Plan: REPLACE K FOLLOW Code(s): E87.6 - HYPOKALEMIA (8) Diabetes Assessment/Plan: BGM SS ENDO Code(s): E11.9 - TYPE 2 DIABETES MELLITUS WITHOUT COMPLICATIONS
[2019-05-02] MEDS ORDERED: PATIENT'S OWN MEDICATION (NON-FORMULARY) (Metformin Hcl [Glucophage] 1,000 MG) PO SCH (10:00)
[2019-05-02] MEDS ORDERED: metFORMIN HCL 500 MG TABLET (FP) PO SCH (10:00)
[2019-05-02] MEDS: SODIUM CHLORIDE 0.45%/POT 20 MEQ/1,000 ML INFUS.BAG IV SCH (10:19)
--- NOTE | 2019-05-02 11:57 | CON.ID ---
Consult Consult Specialty:: infectious disease Referred by:: dr rivers Reason for Consultation:: gram negative bacteremia - History of Present Illness Chief Complaint: fever History of Present Illness: 53 yo female with DM, hsitory of breast Cancer developed lethargy over the weekend, Tuesday noted elevated blood sugars had drenching sweats Tuesday night went to [facility] where she had fever to 103 on Tuesday and was referred to ED she was given rocephn iv and discharged with diagnosis of UTI-tuesday she was called back Tuesday evening for positive blood culture-GNB now with Gram negative bacilli in urine started on vanco/zosyn last night feels well today no flank pain no abdominal pain no diarrhea no nausea or vomiting - History Source History Provided By: Patient, Medical Record - Past Medical History Cardio/Vascular: Yes: HTN ...LMP: 08/17/12 Heme/Onc: Yes: Anemia, Cancer (breast cancer 2011) Endocrine: Yes: Diabetes Mellitus - Past Surgical History Additional Surgical History: left partial mastectomy with sentinal node biopsy 2011 - Alcohol/Substance Use Hx Alcohol Use: No - Smoking History Smoking history: Never smoked Have you smoked in the past 12 months: No - Social History Usual Living Arrangement: Alone ADL: Independent 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 History of Recent Travel: Yes ([employer] [place]) Home Medications - Allergies Allergies/Adverse Reactions: Allergies Allergy/AdvReac Type Severity Reaction Status Date / Time No Known Drug Allergies Allergy Verified 04/30/19 20:49 - Home Medications Home Medications: Ambulatory Orders metFORMIN HCL [Glucophage] 1,000 mg PO DAILY 07/17/12 Tamoxifen Citrate 01/28/17 Insulin Lispro [Humalog] 100 unit SQ BID PRN 05/01/19 Sulfamethoxazole/Trimethoprim [Bactrim Ds Tablet] 1 each PO BID 3 Days #6 tablet 05/01/19 Family Disease History - Family Disease History Family Disease History: Diabetes: Father, Mother Review of Systems - Review of Systems Constitutional: reports: Fever, Lethargy, Night Sweats Eyes: reports: No Symptoms HENT: reports: No Symptoms. denies: Difficult Swallowing Neck: reports: No Symptoms Cardiovascular: reports: No Symptoms. denies: Chest Pain, Edema Respiratory: reports: No Symptoms. denies: Cough, SOB Gastrointestinal: reports: No Symptoms. denies: Abdominal Pain Genitourinary: reports: No Symptoms. denies: Burning, Discharge, Dysuria, Flank Pain Integumentary: reports: No Symptoms Neurological: reports: No Symptoms Endocrine: reports: No Symptoms Hematology/Lymphatic: reports: No Symptoms Psychiatric: reports: No Symptoms Physical Exam Vital Signs: Vital Signs Temperature 99 F 05/02/19 10:00 Pulse Rate 86 05/02/19 10:00 Respiratory Rate 18 05/02/19 10:00 Blood Pressure 134/73 05/02/19 10:00 O2 Sat by Pulse Oximetry (%) 100 05/02/19 01:37 Constitutional: Yes: Well Nourished, No Distress, Calm Eyes: Yes: Conjunctiva Clear, EOM Intact HENT: Yes: Atraumatic, Normocephalic. No: Thrush Neck: Yes: Supple, Trachea Midline Cardiovascular: Yes: Regular Rate and Rhythm Respiratory: Yes: Regular, CTA Bilaterally Gastrointestinal: Yes: Normal Bowel Sounds, Soft ...Rectal Exam: Yes: Deferred Renal/: No: Bladder Distention, CVA Tenderness - Left, CVA Tenderness - Right Breast(s): Yes: WNL Musculoskeletal: Yes: WNL Extremities: Yes: WNL Edema: No Neurological: Yes: WNL, Alert, Oriented Labs: CBC, BMP 05/02/19 06:40 05/02/19 06:40 Microbiology 05/01/19 01:15 Blood - Peripheral Venous Blood Culture - Preliminary Lactose Fermenting Neg Bacilli 05/01/19 00:50 Blood - Peripheral Venous Blood Culture - Preliminary NO GROWTH OBTAINED AFTER 24 HOURS, INCUBATION TO CONTINUE FOR 4 DAYS. 05/01/19 00:05 Urine - Urine Clean Catch Urine Culture - Preliminary Lactose Fermenting Neg Bacilli Imaging - Results Chest X-ray: Report Reviewed Problem List - Problems (1) Fever Code(s): R50.9 - FEVER, UNSPECIFIED Qualifiers: Fever type: due to other condition Qualified Code(s): R50.81 - Fever presenting with conditions classified elsewhere (2) Gram-negative bacteremia Code(s): R78.81 - BACTEREMIA (3) UTI (urinary tract infection) Code(s): N39.0 - URINARY TRACT INFECTION, SITE NOT SPECIFIED (4) Thrombocytopenia Code(s): D69.6 - THROMBOCYTOPENIA, UNSPECIFIED Assessment/Plan gram negative bacteremia UTI diabetes history of breast cancer continue rocephin f/u cultures thrombocytopenia secondary to sepsis repeat cbc in am
[2019-05-02 15:26] LABS: BASO % 0.4 % (0-2.0); EOS % 0.8 % (0-4.5); HEMATOCRIT 30.3 % (32.4-45.2); HEMOGLOBIN 10.1 GM/dL (10.7-15.3); LYMPH % 26.7 % (8-40); MCH 26.9 pg (25.7-33.7); MCHC 33.5 g/dl (32.0-36.0); MEAN CELL VOLUME 80.3 fl (80-96); MEAN PLT VOLUME 8.5 fl (7.5-11.1); MONO % 12.7 % (3.8-10.2); NEUT % 59.4 % (42.8-82.8); PLATELET COUNT 107 K/MM3 (134-434); RBC 3.77 M/mm3 (3.60-5.2); RDW 13.9 % (11.6-15.6); WHITE BLOOD COUNT 4.4 K/mm3 (4.0-10.0)
[2019-05-02] MEDS ORDERED: ONDANSETRON 4 MG/2 ML VIAL IVPB PRN (16:24)
[2019-05-02] MEDS ORDERED: DEXTROSE 5%-WATER 100 ML IVPB ONE (18:39)
[2019-05-02] MEDS ORDERED: PT OWN MED DRAWER 7, Y5N ONE (18:39)
[2019-05-02] MEDS: CEFTRIAXONE 2 GM in DEXTROSE 5%-WATER 100 ML IVPB SCH (18:51)
[2019-05-02] MEDS: INSULIN (LEVEMIR) 100 UNITS/ML UNITS SQ SCH (21:53)
[2019-05-03] MEDS: INSULIN (NOVOLOG) ASPART 100 UNITS/ML 10ML VIAL SQ SCH ×3 (06:40→17:29)
[2019-05-03 07:27] LABS: BASO % 0.3 % (0-2.0); EOS % 1.1 % (0-4.5); HEMATOCRIT 28.9 % (32.4-45.2); HEMOGLOBIN 9.8 GM/dL (10.7-15.3); LYMPH % 29.5 % (8-40); MCH 27.2 pg (25.7-33.7); MEAN PLT VOLUME 8.4 fl (7.5-11.1); MONO % 14.1 % (3.8-10.2); RBC 3.61 M/mm3 (3.60-5.2); WHITE BLOOD COUNT 3.4 K/mm3 (4.0-10.0)
[2019-05-03 07:46] LABS: ALBUMIN 2.6 g/dl (3.4-5.0); BILIRUBIN,TOTAL 0.6 mg/dL (0.2-1); BLOOD UREA NITROGEN 6.1 mg/dL (7-18); CALCIUM 8.2 mg/dL (8.5-10.1); CREATININE 0.6 mg/dL (0.55-1.3); POTASSIUM 3.7 mmol/L (3.5-5.1)
[2019-05-03 08:17] LABS: PLATELET COUNT 104 K/MM3 (134-434)
[2019-05-03] MEDS ORDERED: PT OWN MED DRAWER 7, Y5N ONE ×2 (09:19→10:05)
[2019-05-03] MEDS ORDERED: DEXTROSE 5%-WATER 100 ML IVPB ONE (09:20)
[2019-05-03] MEDS: CEFTRIAXONE 2 GM in DEXTROSE 5%-WATER 100 ML IVPB SCH (09:38)
--- NOTE | 2019-05-03 09:40 | PN ---
Progress Note, Physician Chief Complaint: gram negative bacteremia History of Present Illness: NAD afebrile seen by ID - Current Medication List Current Medications: Active Medications Acetaminophen (Tylenol -) 650 mg PO Q4H PRN PRN Reason: FEVER Last Admin: 05/02/19 05:57 Dose: 650 mg Potassium Chloride/Sodium Chloride (1/2ns+20meq Kcl) 20 meq in 1,000 mls @ 83 mls/hr IV ASDIR KORY Last Admin: 05/02/19 10:19 Dose: 83 mls/hr Ceftriaxone Sodium 2 gm/ (Dextrose) 100 mls @ 200 mls/hr IVPB DAILY [facility]; Protocol Last Admin: 05/02/19 18:51 Dose: 200 mls/hr Insulin Aspart (Novolog Vial) 0 units SQ TIDAC [facility]; Protocol Last Admin: 05/03/19 06:40 Dose: Not Given Ondansetron HCl (Zofran Injection) 4 mg IVPB Q8H PRN PRN Reason: NAUSEA AND/OR VOMITING Last Admin: 05/02/19 16:34 Dose: 4 mg - Objective Vital Signs: Vital Signs Temperature 99.2 F 05/03/19 06:00 Pulse Rate 85 05/03/19 06:00 Respiratory Rate 17 05/03/19 06:00 Blood Pressure 140/70 05/03/19 06:00 O2 Sat by Pulse Oximetry (%) 100 05/02/19 21:00 Constitutional: Yes: Well Nourished, No Distress, Calm Cardiovascular: Yes: Regular Rate and Rhythm Respiratory: Yes: Regular Gastrointestinal: Yes: Normal Bowel Sounds, Soft Genitourinary: Yes: WNL Musculoskeletal: Yes: WNL Extremities: Yes: WNL Edema: No Peripheral Pulses WNL: Yes Neurological: Yes: Alert, Oriented Psychiatric: Yes: Alert, Oriented Labs: CBC, BMP 05/03/19 06:17 05/03/19 06:17 INR, PTT INR 1.15 (0.83-1.09) H 05/01/19 18:37 Assessment/Plan (1) Sepsis Assessment/Plan: -ID on board -afebrile -IV abx -Continue IVF -LA normal -First UC/BC from 05/01/19-showed Ecoli Microbiology 05/01/19 21:30 Urine - Urine Clean Catch Urine Culture - Final NO GROWTH OBTAINED 05/01/19 18:37 Blood - Peripheral Venous Blood Culture - Preliminary NO GROWTH OBTAINED AFTER 24 HOURS, INCUBATION TO CONTINUE FOR 4 DAYS. 05/01/19 18:37 Blood - Peripheral Venous Blood Culture - Preliminary NO GROWTH OBTAINED AFTER 24 HOURS, INCUBATION TO CONTINUE FOR 4 DAYS. Code(s): A41.9 - SEPSIS, UNSPECIFIED ORGANISM (2) Thrombocytopenia Assessment/Plan: -likely 2/2 to acute infectious process -Hematology consult Code(s): D69.6 - THROMBOCYTOPENIA, UNSPECIFIED (3) Anemia Assessment/Plan: Code(s): D64.9 - ANEMIA, UNSPECIFIED (4) Fever Code(s): R50.9 - FEVER, UNSPECIFIED Qualifiers: Fever type: due to other condition Qualified Code(s): R50.81 - Fever presenting with conditions classified elsewhere (5) History of breast cancer Code(s): Z85.3 - PERSONAL HISTORY OF MALIGNANT NEOPLASM OF BREAST (6) Positive blood culture Code(s): R78.81 - BACTEREMIA (7) Hypokalemia Assessment/Plan: -Resolved Code(s): E87.6 - HYPOKALEMIA (8) Diabetes Assessment/Plan: -a1C at 8.2 -Increase metformin to 1000 mg po bid -Add Januvia 100 mg po daily -Endocrine consult -Continue Levemir 12 U HS Code(s): E11.9 - TYPE 2 DIABETES MELLITUS WITHOUT COMPLICATIONS
--- NOTE | 2019-05-03 10:03 | CONSULT ---
Consult Consult Specialty:: Endocrinology Referred by:: Dr Nuñez Reason for Consultation:: Management of DM - History of Present Illness Chief Complaint: Positve blood culture History of Present Illness: This is a 53 y/o F with h/o breast CA (remission since 2017), T2DM for last 10 years, on Insulin for 8, presenting to ED for a blood culture that grew gram negative bacilli. She denies any symptoms at this time, although does endorse feeling tired. She was diagnosed with UTI the day before admission and given Ceftriaxone. Pt referred for management of DM. Pt takes Victoza, Basal Insulin 25 units daily in AM and premeal Insulin 6 to 8 units with breakfast. Was prescribed by Endo in the city to take it TID but says doing it three times is too much for her. Denies any visual symptoms. Last Oph exam around 8 months ago. No retinopathy. Has occasional paresthesia of left foot for which neurology evaluation was done in the past. 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 History of Recent Travel: Yes ([employer] [place]) Home Medications - Allergies Allergies/Adverse Reactions: Allergies Allergy/AdvReac Type Severity Reaction Status Date / Time No Known Drug Allergies Allergy Verified 04/30/19 20:49 - Home Medications Home Medications: Ambulatory Orders metFORMIN HCL [Glucophage] 1,000 mg PO DAILY 07/17/12 Tamoxifen Citrate 01/28/17 Insulin Lispro [Humalog] 100 unit SQ BID PRN 05/01/19 Sulfamethoxazole/Trimethoprim [Bactrim Ds Tablet] 1 each PO BID 3 Days #6 tablet 05/01/19 Family Disease History - Family Disease History Family Disease History: Diabetes: Father, Mother Review of Systems - Review of Systems Constitutional: reports: Weakness Eyes: reports: No Symptoms HENT: reports: No Symptoms Neck: reports: No Symptoms Cardiovascular: reports: No Symptoms Respiratory: reports: No Symptoms Gastrointestinal: reports: No Symptoms Genitourinary: reports: No Symptoms Musculoskeletal: reports: No Symptoms Neurological: reports: No Symptoms Endocrine: reports: No Symptoms Hematology/Lymphatic: reports: No Symptoms Physical Exam Vital Signs: Vital Signs Temperature 99.2 F 05/03/19 06:00 Pulse Rate 85 05/03/19 06:00 Respiratory Rate 17 05/03/19 06:00 Blood Pressure 140/70 05/03/19 06:00 O2 Sat by Pulse Oximetry (%) 100 05/02/19 21:00 Constitutional: Yes: No Distress, Calm Eyes: Yes: Conjunctiva Clear, EOM Intact HENT: Yes: Atraumatic, Normocephalic Neck: Yes: Supple, Trachea Midline Cardiovascular: Yes: Regular Rate and Rhythm Respiratory: Yes: Regular, CTA Bilaterally Gastrointestinal: Yes: Normal Bowel Sounds Musculoskeletal: Yes: WNL Extremities: Yes: WNL Edema: No Neurological: Yes: Alert, Oriented Labs: CBC, BMP 05/03/19 06:17 05/03/19 06:17 Assessment/Plan AP; UTI Gram Neg Bacterimia T2DM: Uncontrolled, A1c 8.2 Diet exercise discussed Diabetes education done. Discussed need to take premeal Insulin TID with meals as prescribed. BGM QACHS Nutrition consult Restart Levemir 12 units daily at HS Got 25 units levemir on 05/01 none on 05/02 Novolog SS coverage Metformin Januvia
--- NOTE | 2019-05-03 10:24 | PN ---
Progress Note (short form) - Note Progress Note: feels improved no complaints Vital Signs Period Temp Pulse Resp BP Sys/Salomon Pulse Ox Last 24 Hr 98.7 F-99.3 F 85-90 17-18 135-150/70-78 100 cor-rrr lungs decreased bs at bases abd soft,nt ext no edema CBC, BMP 05/03/19 06:17 05/03/19 06:17 Microbiology 05/01/19 21:30 Urine - Urine Clean Catch Urine Culture - Final NO GROWTH OBTAINED 05/01/19 18:37 Blood - Peripheral Venous Blood Culture - Preliminary NO GROWTH OBTAINED AFTER 24 HOURS, INCUBATION TO CONTINUE FOR 4 DAYS. 05/01/19 18:37 Blood - Peripheral Venous Blood Culture - Preliminary NO GROWTH OBTAINED AFTER 24 HOURS, INCUBATION TO CONTINUE FOR 4 DAYS. a/p ecoli bacteremia secondary to UTI thrombocytopenia anemia diabetes day #3 rocephin check renal ulltasound check EKG for QTC repeat cbc in am hopefully home in am on levaquin if sono, ekg and cbc are WNL d/w patient she is aware Problem List - Problems (1) Fever Code(s): R50.9 - FEVER, UNSPECIFIED Qualifiers: Qualified Code(s): R50.81 - Fever presenting with conditions classified elsewhere (2) Gram-negative bacteremia Code(s): R78.81 - BACTEREMIA (3) UTI (urinary tract infection) Code(s): N39.0 - URINARY TRACT INFECTION, SITE NOT SPECIFIED (4) Thrombocytopenia Code(s): D69.6 - THROMBOCYTOPENIA, UNSPECIFIED
[2019-05-03] MEDS: metFORMIN HCL 500 MG TABLET (FP) PO SCH ×2 (10:25→18:01)
[2019-05-03] MEDS: SODIUM CHLORIDE 0.45%/POT 20 MEQ/1,000 ML INFUS.BAG IV SCH (14:20)
--- NOTE | 2019-05-03 14:27 | PN ---
Progress Note (short form) - Note Progress Note: Patient seen and examined Well known to me 2012 left invasive ductal breast ca with positive nodes , ER+, Her-2 negative treated with lumpectomy, RT, chemotherapy. This was followed by hormonal therapy with arimdex and reconstruction. ( Requires 10 years of hormones in view of positive nodes) Diabetic on oral agents. Patient asymptomatic but developed drenching sweats and fevers to 103. Went to [facility] and told of UTI with GNB. Developed + blood cultures with GNB and advised hospitilization. Presumptive diagnosis of urosepsis. Initial WBC count normal and mild decrease in platelets. Subsequent fall in Wbc and platelets during hospital course and antibiotic therapy. PLATELET COUNTS, WBC COUNTS, HCT ALL NORMAL IN OFFICE OUTPATIENT) Currently feels well without symptoms Last Vital Signs Temp Pulse Resp BP Pulse Ox 99.2 F 85 17 140/70 100 05/03/19 06:00 05/03/19 06:00 05/03/19 06:00 05/03/19 06:00 05/02/19 21:00 HEENT: ROOPA, EOM Intact Oropharynx: No thrush, No mucositis Neck: Supple Nodes: Without adenopathy Breasts: left breast reconstruction; right breast - no masses Cor: RSR, No murmurs, No gallops Lungs: Clear to P&A Abd: Soft, Normal bowel sounds, No organomegaly Ext:No significant edema Skin: No rashes, Integument intact CBC, BMP 05/03/19 06:17 05/03/19 06:17 Current Medications Generic Name Dose Route Start Last Admin Trade Name Freq PRN Reason Stop Dose Admin Acetaminophen 650 mg 05/01/19 21:20 05/02/19 05:57 Tylenol - PO 650 mg Q4H PRN Administration FEVER Potassium Chloride/Sodium Chloride 20 meq in 1,000 mls @ 83 mls/hr 05/02/19 09 :00 05/03/19 14:20 1/2ns+20meq Kcl IV 83 mls/hr ASDIR KORY Administration Ceftriaxone Sodium 2 gm/ 100 mls @ 200 mls/hr 05/02/19 12:00 05/03/19 09:38 Dextrose IVPB 200 mls/hr DAILY KORY Administration Protocol Insulin Aspart 0 units 05/02/19 07:00 05/03/19 06:40 Novolog Vial SQ Not Given TIDAC [facility] Protocol Insulin Aspart 1 vial 05/03/19 22:00 Novolog Vial Sliding Scale - SQ HS [facility] Protocol Insulin Detemir 12 units 05/03/19 22:00 Levemir Vial SQ HS [facility] Metformin HCl 1,000 mg 05/03/19 10:00 05/03/19 10:25 Glucophage - PO Not Given BIDAC [facility] Ondansetron HCl 4 mg 05/02/19 16:24 05/02/19 16:34 Zofran Injection IVPB 4 mg Q8H PRN Administration NAUSEA AND/OR VOMITING Sitagliptin Phosphate 50 mg 05/04/19 07:00 Januvia - PO DAILY@0700 [facility] Impression: Presumed Urosepsis on ceftriaxone . To change to oral agents per ID. Leukopenia secondary to sepsis +/- treatment Thrombocytopenia secondary to sepsis Anemia- secondary to infection, ineffective erythropoiesis IDC of left breast s/p lumpectomy, RT, chemotherapy.(2011) Patient has not been on arimidex while in hospital and this should be resumed. Will need to monitor CBC upon discharge. ---> follow up with Dr. Nuñez one week post discharge Diabetes should improve with clearance of infection. Patient has follow up appointment outpatient in 3 months. ( or sooner prn).
--- NOTE | 2019-05-03 16:52 | EKG ---
Test Reason : Blood Pressure : / mmHG Vent. Rate : 083 BPM Atrial Rate : 083 BPM P-R Int : 138 ms QRS Dur : 100 ms QT Int : 364 ms P-R-T Axes : 044 -08 023 degrees QTc Int : 427 ms NORMAL SINUS RHYTHM NORMAL ECG WHEN COMPARED WITH ECG OF 30-JAN-2016 16:51, NO SIGNIFICANT CHANGE WAS FOUND Confirmed by JOE ARRIAGA MD ([id number]) on 05/03/2019 4:52:18 PM Referred By: Nilson VALENCIA Confirmed By:JOE ARRIAGA MD
[2019-05-03] MEDS: ACETAMINOPHEN 325 MG TABLET (FP) PO PRN (18:01)
[2019-05-03] MEDS ORDERED: INSULIN (LEVEMIR) 100 UNITS/ML UNITS SQ SCH (22:00)
[2019-05-03] MEDS ORDERED: INSULIN SLIDING SCALE (NOVOLOG) 1 VIAL SQ SCH (22:00)
[2019-05-04] MEDS: SODIUM CHLORIDE 0.45%/POT 20 MEQ/1,000 ML INFUS.BAG IV SCH ×2 (04:26→09:34)
[2019-05-04] MEDS ORDERED: sitaGLIPtin PHOSPHATE 50 MG TABLET PO SCH (07:00)
[2019-05-04] MEDS: metFORMIN HCL 500 MG TABLET (FP) PO SCH (07:05)
[2019-05-04] MEDS: INSULIN (NOVOLOG) ASPART 100 UNITS/ML 10ML VIAL SQ SCH ×2 (07:07→12:05)
--- NOTE | 2019-05-04 08:56 | PN ---
Progress Note (short form) - Note Progress Note: Feels good Vital Signs Period Temp Pulse Resp BP Sys/Salomon Pulse Ox Last 24 Hr 98.0 F-98.8 F 83-90 14-20 101-148/45-73 98-100 PE: AOx3 Neck: supple, No JVD HEENT: EOMI Lungs: CTA CVS: S1S2 Abd: Benign EXt: No edema Neuro: No focal deficit CMP Sodium 138 mmol/L (136-145) 05/03/19 06:17 Potassium 3.7 mmol/L (3.5-5.1) 05/03/19 06:17 Chloride 107 mmol/L (98-107) 05/03/19 06:17 Carbon Dioxide 26 mmol/L (21-32) 05/03/19 06:17 Anion Gap 6 MMOL/L (8-16) L 05/03/19 06:17 BUN 6.1 mg/dL (7-18) L 05/03/19 06:17 Creatinine 0.6 mg/dL (0.55-1.3) 05/03/19 06:17 Est GFR (CKD-EPI)AfAm 119.77 05/03/19 06:17 Est GFR (CKD-EPI)NonAf 103.34 05/03/19 06:17 POC Glucometer 144 UNITS (80-120) 05/04/19 07:06 Random Glucose 130 mg/dL (74-106) H 05/03/19 06:17 Hemoglobin A1c % 8.2 % (4.2-6.3) H 05/02/19 06:20 Lactic Acid 0.7 mmol/L (0.4-2.0) 05/02/19 10:00 Calcium 8.2 mg/dL (8.5-10.1) L 05/03/19 06:17 Ferritin 244.8 ng/ml (8-388) 05/03/19 10:23 Total Bilirubin 0.6 mg/dL (0.2-1) 05/03/19 06:17 AST 22 U/L (15-37) 05/03/19 06:17 ALT 36 U/L (13-61) 05/03/19 06:17 Alkaline Phosphatase 114 U/L (45-117) 05/03/19 06:17 Total Protein 6.0 g/dl (6.4-8.2) L 05/03/19 06:17 Albumin 2.6 g/dl (3.4-5.0) L 05/03/19 06:17 Vitamin B12 664 pg/ml (193-986) 05/03/19 10:23 TSH 1.43 uIU/ml (0.358-3.74) 05/03/19 10:23 Free T4 1.40 ng/dl (0.76-1.46) 05/03/19 10:23 Current Medications Generic Name Dose Route Start Last Admin Trade Name Freq PRN Reason Stop Dose Admin Acetaminophen 650 mg 05/01/19 21:20 05/03/19 18:01 Tylenol - PO 650 mg Q4H PRN Administration FEVER Potassium Chloride/Sodium Chloride 20 meq in 1,000 mls @ 83 mls/hr 05/02/19 09 :00 05/04/19 04:26 1/2ns+20meq Kcl IV 83 mls/hr ASDIR KORY Administration Ceftriaxone Sodium 2 gm/ 100 mls @ 200 mls/hr 05/02/19 12:00 05/03/19 09:38 Dextrose IVPB 200 mls/hr DAILY KORY Administration Protocol Insulin Aspart 0 units 05/02/19 07:00 05/04/19 07:07 Novolog Vial SQ Not Given TIDAC [facility] Protocol Insulin Aspart 1 vial 05/03/19 22:00 05/03/19 22:03 Novolog Vial Sliding Scale - SQ 2 units HS [facility] Administration Protocol Insulin Detemir 12 units 05/03/19 22:00 05/03/19 22:03 Levemir Vial SQ 12 units HS [facility] Administration Metformin HCl 1,000 mg 05/03/19 10:00 05/04/19 07:05 Glucophage - PO 1,000 mg BIDAC KORY Administration Ondansetron HCl 4 mg 05/02/19 16:24 05/02/19 16:34 Zofran Injection IVPB 4 mg Q8H PRN Administration NAUSEA AND/OR VOMITING Sitagliptin Phosphate 50 mg 05/04/19 07:00 05/04/19 07:05 Januvia - PO Not Given DAILY@0700 [facility] AP; UTI Gram Neg Bacterimia T2DM: Uncontrolled, A1c 8.2 Blood sugar acceptable Discussed need to take premeal Insulin TID with meals as prescribed. BGM QACHS Nutrition consult Levemir 12 units daily at Got 25 units levemir on 05/01 none on 05/02 Novolog SS coverage Metformin Elsie
[2019-05-04] MEDS ORDERED: DEXTROSE 5%-WATER 100 ML IVPB ONE (09:28)
[2019-05-04] MEDS: CEFTRIAXONE 2 GM in DEXTROSE 5%-WATER 100 ML IVPB SCH (09:33)
[2019-05-04 10:28] LABS: HEMOGLOBIN 9.8 GM/dL (10.7-15.3); MCH 27.1 pg (25.7-33.7); MEAN CELL VOLUME 79.8 fl (80-96); MEAN PLT VOLUME 8.1 fl (7.5-11.1); PLATELET COUNT 146 K/MM3 (134-434); RBC 3.63 M/mm3 (3.60-5.2); RDW 13.8 % (11.6-15.6); WHITE BLOOD COUNT 3.7 K/mm3 (4.0-10.0)
--- NOTE | 2019-05-04 10:31 | PN ---
Progress Note, Physician - Current Medication List Current Medications: Active Medications Acetaminophen (Tylenol -) 650 mg PO Q4H PRN PRN Reason: FEVER Last Admin: 05/03/19 18:01 Dose: 650 mg Potassium Chloride/Sodium Chloride (1/2ns+20meq Kcl) 20 meq in 1,000 mls @ 83 mls/hr IV ASDIR [facility] Last Admin: 05/04/19 09:34 Dose: Not Given Ceftriaxone Sodium 2 gm/ (Dextrose) 100 mls @ 200 mls/hr IVPB DAILY [facility]; Protocol Last Admin: 05/04/19 09:33 Dose: 200 mls/hr Insulin Aspart (Novolog Vial) 0 units SQ TIDAC [facility]; Protocol Last Admin: 05/04/19 07:07 Dose: Not Given Insulin Aspart (Novolog Vial Sliding Scale -) 1 vial SQ HS [facility]; Protocol Last Admin: 05/03/19 22:03 Dose: 2 units Insulin Detemir (Levemir Vial) 12 units SQ HS [facility] Last Admin: 05/03/19 22:03 Dose: 12 units Metformin HCl (Glucophage -) 1,000 mg PO BIDAC [facility] Last Admin: 05/04/19 07:05 Dose: 1,000 mg Ondansetron HCl (Zofran Injection) 4 mg IVPB Q8H PRN PRN Reason: NAUSEA AND/OR VOMITING Last Admin: 05/02/19 16:34 Dose: 4 mg Sitagliptin Phosphate (Januvia -) 50 mg PO DAILY@0700 [facility] Last Admin: 05/04/19 07:05 Dose: Not Given - Objective Vital Signs: Vital Signs Temperature 98.8 F 05/04/19 09:32 Pulse Rate 79 05/04/19 09:32 Respiratory Rate 19 05/04/19 09:32 Blood Pressure 141/76 05/04/19 09:32 O2 Sat by Pulse Oximetry (%) 98 05/03/19 21:00 Labs: CBC, BMP 05/03/19 06:17 INR, PTT INR 1.15 (0.83-1.09) H 05/01/19 18:37
[2019-05-04 12:08] LABS: SERUM IRON SATURATION 7 % (15-55); TOTAL IRON BINDING CAPACITY 232 ug/dL (250-450)
--- NOTE | 2019-05-04 13:04 | PN ---
Progress Note (short form) - Note Progress Note: no complaints Vital Signs Period Temp Pulse Resp BP Sys/Salomon Pulse Ox Last 24 Hr 98.0 F-98.8 F 79-90 18-20 101-148/45-76 98 cor-rrr llungs clear abd soft,nt ext no edema CBC, BMP 05/04/19 09:37 05/03/19 06:17 Microbiology 05/01/19 18:37 Blood - Peripheral Venous Blood Culture - Preliminary NO GROWTH OBTAINED AFTER 48 HOURS, INCUBATION TO CONTINUE FOR 3 DAYS. 05/01/19 18:37 Blood - Peripheral Venous Blood Culture - Preliminary NO GROWTH OBTAINED AFTER 48 HOURS, INCUBATION TO CONTINUE FOR 3 DAYS. 05/01/19 21:30 Urine - Urine Clean Catch Urine Culture - Final NO GROWTH OBTAINED a/p ecoli bacteremia secondary to UTI thrombocytopenia anemia diabetes day #4 rocephin check renal ulltasound-Normal check EKG for QTC-normal can switch to po levaquin 500 mg daily for 7 days Problem List - Problems (1) Fever Code(s): R50.9 - FEVER, UNSPECIFIED Qualifiers: Fever type: due to other condition Qualified Code(s): R50.81 - Fever presenting with conditions classified elsewhere (2) Gram-negative bacteremia Code(s): R78.81 - BACTEREMIA (3) UTI (urinary tract infection) Code(s): N39.0 - URINARY TRACT INFECTION, SITE NOT SPECIFIED (4) Thrombocytopenia Code(s): D69.6 - THROMBOCYTOPENIA, UNSPECIFIED
--- NOTE | 2019-05-04 14:06 | DS ---
Physical Examination Vital Signs: Vital Signs Temperature 98.8 F 05/04/19 09:32 Pulse Rate 79 05/04/19 09:32 Respiratory Rate 19 05/04/19 09:32 Blood Pressure 141/76 05/04/19 09:32 O2 Sat by Pulse Oximetry (%) 98 05/03/19 21:00 Findings/Remarks: Patient is a 53 y/o female with past medical history of breast CA, DM, Anemia, HTN. Patient presented to ER on 04/30 due to fever 103F. She was diagnosed with UTI, received Ceftriaxone IV in ER and discharged home. On 05/01 patient presented to ER with positive blood cultures (gram neg bacilli). Constitutional: Yes: No Distress, Calm Eyes: Yes: Conjunctiva Clear HENT: Yes: Atraumatic Cardiovascular: Yes: Regular Rate and Rhythm Respiratory: Yes: Regular, CTA Bilaterally Gastrointestinal: Yes: Normal Bowel Sounds, Soft Musculoskeletal: Yes: WNL Extremities: Yes: WNL Edema: No Neurological: Yes: Alert, Oriented Psychiatric: Yes: Alert, Oriented Labs: CBC, BMP 05/04/19 09:37 05/03/19 06:17 Microbiology 05/01/19 18:37 Blood - Peripheral Venous Blood Culture - Preliminary NO GROWTH OBTAINED AFTER 48 HOURS, INCUBATION TO CONTINUE FOR 3 DAYS. 05/01/19 18:37 Blood - Peripheral Venous Blood Culture - Preliminary NO GROWTH OBTAINED AFTER 48 HOURS, INCUBATION TO CONTINUE FOR 3 DAYS. 05/01/19 21:30 Urine - Urine Clean Catch Urine Culture - Final NO GROWTH OBTAINED Discharge Summary Reason For Visit: POSITIVE BLOOD CULTURE Current Active Problems Anemia (Acute) Diabetes (Acute) Fever (Acute) Gram-negative bacteremia (Acute) History of breast cancer (Acute) Hypokalemia (Acute) Positive blood culture (Acute) Sepsis (Acute) Thrombocytopenia (Acute) UTI (urinary tract infection) (Acute) Hospital Course: see progress notes Laboratory Tests 05/01/19 05/01/19 05/01/19 17:22 17:22 18:37 WBC 5.7 RBC 4.13 Hgb 11.2 Hct 33.3 D MCV 80.5 MCH 27.1 MCHC 33.6 RDW 13.6 Plt Count 126 L MPV 8.2 Absolute Neuts (auto) 4.1 Neutrophils % 72.1 Lymphocytes % 16.4 Monocytes % 11.0 H Eosinophils % 0.2 D Basophils % 0.3 Nucleated RBC % 0 PT with INR INR Sodium 135 L Potassium 3.7 Chloride 102 Carbon Dioxide 28 Anion Gap 5 L BUN 14.7 Creatinine 0.9 Est GFR (CKD-EPI)AfAm 84.01 Est GFR (CKD-EPI)NonAf 72.49 POC Glucometer Random Glucose 193 H Hemoglobin A1c % Lactic Acid 1.1 Calcium 8.8 Iron TIBC Iron Saturation Unsaturated IBC Ferritin Total Bilirubin 0.8 AST 16 ALT 41 Alkaline Phosphatase 104 Total Protein 6.9 Albumin 3.0 L Vitamin B12 TSH Free T4 Urine Color Urine Appearance Urine pH Ur Specific Manter Urine Protein Urine Glucose (UA) Urine Ketones Urine Blood Urine Nitrite Urine Bilirubin Urine Urobilinogen Ur Leukocyte Esterase Urine WBC (Auto) Urine RBC (Auto) Urine Casts (Auto) U Epithel Cells (Auto) Urine Bacteria (Auto) 05/01/19 05/01/19 05/01/19 18:37 20:40 21:30 WBC RBC Hgb Hct MCV MCH MCHC RDW Plt Count MPV Absolute Neuts (auto) Neutrophils % Lymphocytes % Monocytes % Eosinophils % Basophils % Nucleated RBC % PT with INR 13.60 H INR 1.15 H Sodium Potassium Chloride Carbon Dioxide Anion Gap BUN Creatinine Est GFR (CKD-EPI)AfAm Est GFR (CKD-EPI)NonAf POC Glucometer Random Glucose Hemoglobin A1c % Lactic Acid 0.9 Calcium Iron TIBC Iron Saturation Unsaturated IBC Ferritin Total Bilirubin AST ALT Alkaline Phosphatase Total Protein Albumin Vitamin B12 TSH Free T4 Urine Color Dk yellow Urine Appearance Clear Urine pH 6.0 Ur Specific Manter 1.021 Urine Protein 2+ H Urine Glucose (UA) 2+ H Urine Ketones Trace H Urine Blood 2+ H Urine Nitrite Negative Urine Bilirubin Negative Urine Urobilinogen 1.0 Ur Leukocyte Esterase 1+ H Urine WBC (Auto) 28 Urine RBC (Auto) 18 Urine Casts (Auto) 17 U Epithel Cells (Auto) 6.2 Urine Bacteria (Auto) 2.0 05/01/19 05/02/19 05/02/19 23:15 06:18 06:20 WBC RBC Hgb Hct MCV MCH MCHC RDW Plt Count MPV Absolute Neuts (auto) Neutrophils % Lymphocytes % Monocytes % Eosinophils % Basophils % Nucleated RBC % PT with INR INR Sodium Potassium Chloride Carbon Dioxide Anion Gap BUN Creatinine Est GFR (CKD-EPI)AfAm Est GFR (CKD-EPI)NonAf POC Glucometer 206 129 Random Glucose Hemoglobin A1c % 8.2 H Lactic Acid Calcium Iron TIBC Iron Saturation Unsaturated IBC Ferritin Total Bilirubin AST ALT Alkaline Phosphatase Total Protein Albumin Vitamin B12 TSH Free T4 Urine Color Urine Appearance Urine pH Ur Specific Manter Urine Protein Urine Glucose (UA) Urine Ketones Urine Blood Urine Nitrite Urine Bilirubin Urine Urobilinogen Ur Leukocyte Esterase Urine WBC (Auto) Urine RBC (Auto) Urine Casts (Auto) U Epithel Cells (Auto) Urine Bacteria (Auto) 05/02/19 05/02/19 05/02/19 06:40 06:40 10:00 WBC 4.4 RBC 3.56 L Hgb 9.8 L Hct 28.6 L MCV 80.4 MCH 27.5 MCHC 34.2 RDW 13.5 Plt Count 92 L D MPV 9.0 Absolute Neuts (auto) Neutrophils % Lymphocytes % Monocytes % Eosinophils % Basophils % Nucleated RBC % PT with INR INR Sodium 138 Potassium 3.3 L Chloride 106 Carbon Dioxide 25 Anion Gap 7 L BUN 9.2 Creatinine 0.6 Est GFR (CKD-EPI)AfAm 119.77 Est GFR (CKD-EPI)NonAf 103.34 POC Glucometer Random Glucose 117 H Hemoglobin A1c % Lactic Acid 0.7 Calcium 8.0 L Iron TIBC Iron Saturation Unsaturated IBC Ferritin Total Bilirubin 0.7 AST 53 H ALT 47 Alkaline Phosphatase 122 H Total Protein 6.0 L Albumin 2.6 L Vitamin B12 TSH Free T4 Urine Color Urine Appearance Urine pH Ur Specific Manter Urine Protein Urine Glucose (UA) Urine Ketones Urine Blood Urine Nitrite Urine Bilirubin Urine Urobilinogen Ur Leukocyte Esterase Urine WBC (Auto) Urine RBC (Auto) Urine Casts (Auto) U Epithel Cells (Auto) Urine Bacteria (Auto) 05/02/19 05/02/19 05/02/19 11:38 15:00 16:59 WBC 4.4 RBC 3.77 Hgb 10.1 L Hct 30.3 L MCV 80.3 MCH 26.9 MCHC 33.5 RDW 13.9 Plt Count 107 L MPV 8.5 Absolute Neuts (auto) 2.6 Neutrophils % 59.4 Lymphocytes % 26.7 D Monocytes % 12.7 H Eosinophils % 0.8 D Basophils % 0.4 Nucleated RBC % 0 PT with INR INR Sodium Potassium Chloride Carbon Dioxide Anion Gap BUN Creatinine Est GFR (CKD-EPI)AfAm Est GFR (CKD-EPI)NonAf POC Glucometer 140 90 Random Glucose Hemoglobin A1c % Lactic Acid Calcium Iron TIBC Iron Saturation Unsaturated IBC Ferritin Total Bilirubin AST ALT Alkaline Phosphatase Total Protein Albumin Vitamin B12 TSH Free T4 Urine Color Urine Appearance Urine pH Ur Specific Manter Urine Protein Urine Glucose (UA) Urine Ketones Urine Blood Urine Nitrite Urine Bilirubin Urine Urobilinogen Ur Leukocyte Esterase Urine WBC (Auto) Urine RBC (Auto) Urine Casts (Auto) U Epithel Cells (Auto) Urine Bacteria (Auto) 05/02/19 05/03/19 05/03/19 21:50 05:41 06:17 WBC 3.4 L RBC 3.61 Hgb 9.8 L Hct 28.9 L MCV 80.0 MCH 27.2 MCHC 34.0 RDW 14.0 Plt Count 104 L MPV 8.4 Absolute Neuts (auto) 1.8 Neutrophils % 55.0 Lymphocytes % 29.5 Monocytes % 14.1 H Eosinophils % 1.1 Basophils % 0.3 Nucleated RBC % 0 PT with INR INR Sodium Potassium Chloride Carbon Dioxide Anion Gap BUN Creatinine Est GFR (CKD-EPI)AfAm Est GFR (CKD-EPI)NonAf POC Glucometer 107 125 Random Glucose Hemoglobin A1c % Lactic Acid Calcium Iron TIBC Iron Saturation Unsaturated IBC Ferritin Total Bilirubin AST ALT Alkaline Phosphatase Total Protein Albumin Vitamin B12 TSH Free T4 Urine Color Urine Appearance Urine pH Ur Specific Manter Urine Protein Urine Glucose (UA) Urine Ketones Urine Blood Urine Nitrite Urine Bilirubin Urine Urobilinogen Ur Leukocyte Esterase Urine WBC (Auto) Urine RBC (Auto) Urine Casts (Auto) U Epithel Cells (Auto) Urine Bacteria (Auto) 05/03/19 05/03/19 05/03/19 06:17 10:23 10:23 WBC RBC Hgb Hct MCV MCH MCHC RDW Plt Count MPV Absolute Neuts (auto) Neutrophils % Lymphocytes % Monocytes % Eosinophils % Basophils % Nucleated RBC % PT with INR INR Sodium 138 Potassium 3.7 Chloride 107 Carbon Dioxide 26 Anion Gap 6 L BUN 6.1 L Creatinine 0.6 Est GFR (CKD-EPI)AfAm 119.77 Est GFR (CKD-EPI)NonAf 103.34 POC Glucometer Random Glucose 130 H Hemoglobin A1c % Lactic Acid Calcium 8.2 L Iron 17 L TIBC 232 L Iron Saturation 7 L Unsaturated IBC 215 Ferritin Total Bilirubin 0.6 AST 22 ALT 36 Alkaline Phosphatase 114 Total Protein 6.0 L Albumin 2.6 L Vitamin B12 664 TSH 1.43 Free T4 1.40 Urine Color Urine Appearance Urine pH Ur Specific Manter Urine Protein Urine Glucose (UA) Urine Ketones Urine Blood Urine Nitrite Urine Bilirubin Urine Urobilinogen Ur Leukocyte Esterase Urine WBC (Auto) Urine RBC (Auto) Urine Casts (Auto) U Epithel Cells (Auto) Urine Bacteria (Auto) 05/03/19 05/03/19 05/03/19 10:23 12:13 17:27 WBC RBC Hgb Hct MCV MCH MCHC RDW Plt Count MPV Absolute Neuts (auto) Neutrophils % Lymphocytes % Monocytes % Eosinophils % Basophils % Nucleated RBC % PT with INR INR Sodium Potassium Chloride Carbon Dioxide Anion Gap BUN Creatinine Est GFR (CKD-EPI)AfAm Est GFR (CKD-EPI)NonAf POC Glucometer 251 138 Random Glucose Hemoglobin A1c % Lactic Acid Calcium Iron TIBC Iron Saturation Unsaturated IBC Ferritin 244.8 Total Bilirubin AST ALT Alkaline Phosphatase Total Protein Albumin Vitamin B12 TSH Free T4 Urine Color Urine Appearance Urine pH Ur Specific Manter Urine Protein Urine Glucose (UA) Urine Ketones Urine Blood Urine Nitrite Urine Bilirubin Urine Urobilinogen Ur Leukocyte Esterase Urine WBC (Auto) Urine RBC (Auto) Urine Casts (Auto) U Epithel Cells (Auto) Urine Bacteria (Auto) 05/03/19 05/04/19 05/04/19 22:01 07:06 09:37 WBC 3.7 L RBC 3.63 Hgb 9.8 L Hct 29.0 L MCV 79.8 L MCH 27.1 MCHC 34.0 RDW 13.8 Plt Count 146 D MPV 8.1 Absolute Neuts (auto) Neutrophils % Lymphocytes % Monocytes % Eosinophils % Basophils % Nucleated RBC % PT with INR INR Sodium Potassium Chloride Carbon Dioxide Anion Gap BUN Creatinine Est GFR (CKD-EPI)AfAm Est GFR (CKD-EPI)NonAf POC Glucometer 204 144 Random Glucose Hemoglobin A1c % Lactic Acid Calcium Iron TIBC Iron Saturation Unsaturated IBC Ferritin Total Bilirubin AST ALT Alkaline Phosphatase Total Protein Albumin Vitamin B12 TSH Free T4 Urine Color Urine Appearance Urine pH Ur Specific Manter Urine Protein Urine Glucose (UA) Urine Ketones Urine Blood Urine Nitrite Urine Bilirubin Urine Urobilinogen Ur Leukocyte Esterase Urine WBC (Auto) Urine RBC (Auto) Urine Casts (Auto) U Epithel Cells (Auto) Urine Bacteria (Auto) 05/04/19 12:03 WBC RBC Hgb Hct MCV MCH MCHC RDW Plt Count MPV Absolute Neuts (auto) Neutrophils % Lymphocytes % Monocytes % Eosinophils % Basophils % Nucleated RBC % PT with INR INR Sodium Potassium Chloride Carbon Dioxide Anion Gap BUN Creatinine Est GFR (CKD-EPI)AfAm Est GFR (CKD-EPI)NonAf POC Glucometer 188 Random Glucose Hemoglobin A1c % Lactic Acid Calcium Iron TIBC Iron Saturation Unsaturated IBC Ferritin Total Bilirubin AST ALT Alkaline Phosphatase Total Protein Albumin Vitamin B12 TSH Free T4 Urine Color Urine Appearance Urine pH Ur Specific Manter Urine Protein Urine Glucose (UA) Urine Ketones Urine Blood Urine Nitrite Urine Bilirubin Urine Urobilinogen Ur Leukocyte Esterase Urine WBC (Auto) Urine RBC (Auto) Urine Casts (Auto) U Epithel Cells (Auto) Urine Bacteria (Auto) Active Medications Generic Name Dose Route Start Last Admin Trade Name Freq PRN Reason Stop Dose Admin Acetaminophen 650 mg 05/01/19 21:20 05/03/19 18:01 Tylenol - PO 650 mg Q4H PRN Administration FEVER Potassium Chloride/Sodium Chloride 20 meq in 1,000 mls @ 83 mls/hr 05/02/19 09 :00 05/04/19 09:34 1/2ns+20meq Kcl IV Not Given ASDIR [facility] Insulin Aspart 0 units 05/02/19 07:00 05/04/19 12:05 Novolog Vial SQ 2 units TIDAC [facility] Administration Protocol Insulin Aspart 1 vial 05/03/19 22:00 05/03/19 22:03 Novolog Vial Sliding Scale - SQ 2 units HS [facility] Administration Protocol Insulin Detemir 12 units 05/03/19 22:00 05/03/19 22:03 Levemir Vial SQ 12 units HS [facility] Administration Levofloxacin 500 mg 05/05/19 06:00 Levaquin - PO DAILY@0600 [facility] Metformin HCl 1,000 mg 05/03/19 10:00 05/04/19 07:05 Glucophage - PO 1,000 mg BIDAC KORY Administration Ondansetron HCl 4 mg 05/02/19 16:24 05/02/19 16:34 Zofran Injection IVPB 4 mg Q8H PRN Administration NAUSEA AND/OR VOMITING Sitagliptin Phosphate 50 mg 05/04/19 07:00 05/04/19 07:05 Januvia - PO Not Given DAILY@0700 [facility] Microbiology 05/01/19 18:37 Blood - Peripheral Venous Blood Culture - Preliminary NO GROWTH OBTAINED AFTER 48 HOURS, INCUBATION TO CONTINUE FOR 3 DAYS. 05/01/19 18:37 Blood - Peripheral Venous Blood Culture - Preliminary NO GROWTH OBTAINED AFTER 48 HOURS, INCUBATION TO CONTINUE FOR 3 DAYS. 05/01/19 21:30 Urine - Urine Clean Catch Urine Culture - Final NO GROWTH OBTAINED Condition: Stable - Instructions Diet, Activity, Other Instructions: follow up with PMD in 48hrs follow up with Oncologist Dr Huitron as scheduled continue with Levaquin as prescribed return to ER if develop severe pain, respiratory distress, chest pain, fevers Disposition: HOME - Home Medications Comprehensive Discharge Medication List: Ambulatory Orders Insulin (Levemir) [Levemir Vial] 12 units SQ HS #100 units 05/04/19 Sitagliptin Phosphate [Januvia -] 50 mg PO DAILY@0700 #14 tablet 05/04/19 levoFLOXacin [Levaquin -] 500 mg PO DAILY #7 tablet 05/04/19 metFORMIN HCL [Glucophage -] 1,000 mg PO BIDAC #20 tablet 05/04/19
[2019-05-04 14:44] VITALS: BP 140/74; PULSE 83; TEMP 98.6
== END 2019-05-04 15:37 | disposition home or self-care (01) | DRG 872 ==
LOC: JER 17:13 → JERBED 20:48 → J5S 05-02 00:46
PROVIDERS: ADMIT Family Medicine; ATTEND Family Medicine
DX: A41.59 Other Gram-negative sepsis (principal); N39.0 Urinary tract infection, site not specified; E11.65 Type 2 diabetes mellitus with hyperglycemia; I10 Essential (primary) hypertension; D64.9 Anemia, unspecified; D69.6 Thrombocytopenia, unspecified; R50.9 Fever, unspecified; E87.6 Hypokalemia; D72.819 Decreased white blood cell count, unspecified; Z85.3 Personal history of malignant neoplasm of breast
CPT/HCPCS: 36415; 76775-TC; 80053; 81003; 82607; 82728; 82962; 83036; 83540; 83550; 83605; 84439; 84443; 85025; 85027; 85610; 86300; 87040; 87086; 93005; 93010; 99282-25; J0131; J3480; J7030